=== PATIENT | female | born 1985 | race Two or more races ===

== ENCOUNTER 2016-10-29 17:37 | Emergency (ER) | payer SELFPAY ==
--- NOTE | ~2016-10-29 | ER ---
[facility] AGE: 31 Y [address] ROOM: [place] [id number] LOCATION: [facility] ADMIT DATE: 10/29/2016 ER/Outpatient Report DISCHARGE DATE: 10/29/2016 FAMILY PHYSICIAN: Bj Morales MD ATTENDING PHYSICIAN: Yeimy Ruano Time of Arrival: 1746 hours. Time of Evaluation: 1748 hours. CHIEF COMPLAINT: Fever and earache. HISTORY OF PRESENT ILLNESS: The patient states she has not felt well for the last 4 days. Has had fever off and on. Has bilateral earaches and her eyes burn. States she has generalized body aches. She is having some left lower quadrant abdominal pain today also. Has had decreased appetite. She reports that she has taken some Advil and amoxicillin that she had left over for the discomfort. ALLERGIES: SHE HAS NO KNOWN ALLERGIES. CURRENT MEDICATIONS: On her chart and reviewed by me. PAST MEDICAL HISTORY: Benign. PAST SURGICAL HISTORY: and umbilical hernia repair. SOCIAL HISTORY: She presents to the ER accompanied by her children. Denies use of tobacco, alcohol, or drugs. REVIEW OF SYSTEMS: All negative other than those mentioned in the HPI. PHYSICAL EXAMINATION: VITAL SIGNS: She weighs 67 kg, blood pressure is 134/63, pulse of 114, respirations 18, temperature of 100.9 tympanic, and O2 saturation is 98% on room air. GENERAL: She is awake, alert, and oriented x4. SKIN: [place], warm, and dry. RESPIRATIONS: Even and nonlabored. PAT[facility]'S NAME: [facility] AGE: 31 Y [address] ROOM: [place] [id number] LOCATION: [facility] ADMIT DATE: 10/29/2016 ER/Outpatient Report DISCHARGE DATE: 10/29/2016 FAMILY PHYSICIAN: Bj Morales MD ATTENDING PHYSICIAN: Yeimy Ruano HEENT: TMs are dull bilaterally. Nasal is boggy. Oropharynx is slightly red posteriorly. NECK: Supple. No lymphadenopathy. LUNGS: Lung sounds are clear throughout. HEART: Regular rate and rhythm. ABDOMEN: Soft and nondistended. Bowel sounds are present. LABORATORY DATA AND X-RAYS: Clean-catch UA was obtained, does show 500 leukocytes, but has 20 to 50 epithelials and rare bacteria. Strep screen was obtained, it is negative. IMPRESSION: Viral upper respiratory infection. PLAN: Home. Rest. Fluids. Tylenol or ibuprofen for discomfort. Follow up with her primary provider if symptoms persist or worsen. The patient verbalized understanding. ELISABET SEARS APRN FOR MD TROY SIMON/hue /[id number] d: 10/30/16 0047 t: 11/02/16 1110, OUTPATIENT REPORT
[2016-10-29 18:15] LABS: BILIRUBIN URINE NEGATIVE (NEGATIVE); BLOOD URINE NEGATIVE /UL (NEGATIVE); COLOR URINE YELLOW (YELLOW); GLUCOSE URINE NEGATIVE (NEGATIVE); KETONE URINE NEGATIVE (NEGATIVE); LEUKOCYTES URINE 500 /UL (NEGATIVE); NITRITE URINE NEGATIVE (NEGATIVE); PROTEIN URINE NEGATIVE (NEGATIVE); SPEC GRAVITY URINE 1.005 (1.003-1.035); UROBILINOGEN URINE NORMAL (NORMAL)
[2016-10-29 18:18] LABS: TURBIDITY URINE 1+ (CLEAR)
[2016-10-29 18:20] LABS: BACTERIA URINE RARE (NEGATIVE); EPITHELIAL URINE 20-50 #/HPF (NEGATIVE); RBC URINE 0-2 #/HPF (NEGATIVE)
== END 2016-10-29 18:48 | disposition disaster alternative care site (69) ==
LOC: GMED 17:37
PROVIDERS: Family Medicine
DX: J06.9 Acute upper respiratory infection, unspecified (principal); Z98.890 Other specified postprocedural states